=== PATIENT | female | born 1975 | race Two or more races ===

== ENCOUNTER 2025-02-24 10:36 | Emergency (ER) | payer BC, MEDICAID, OTHER ==
[~2025-02-24] VITALS: Ht 157.5 cm; Wt 87.7 kg
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
[2025-02-24] MEDS: KETOROLAC TROMETH 60MG/2ML VIAL IM ONE (11:46)
[2025-02-24] MEDS ORDERED: HYDR-4902 PO (14:47)
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
[2025-02-24 15:56] VITALS: BP 114/71; PULSE 96; RESP 16; TEMP 98.8; O2SAT 96
== END 2025-02-24 15:57 | disposition home or self-care (01) ==
LOC: ER 10:36
DX: M62.838 Other muscle spasm (principal); Z79.899 Other long term (current) drug therapy; V89.2XXA Person injured in unspecified motor-vehicle accident, traffic, initial encounter; Y93.89 Activity, other specified; Y92.89 Other specified places as the place of occurrence of the external cause; Y99.8 Other external cause status
CPT/HCPCS: 72125; 96372; 99285; J1885